=== PATIENT | female | born 1950 | race Caucasian/White ===

== ENCOUNTER 2017-05-19 12:23 | Emergency (ER) | payer OTHER, MEDICARE ==
[2017-05-19 12:39] VITALS: BP 172/100; BMI 24.7
--- NOTE | 2017-05-19 12:57 | DR.GENAD ---
HPI - PCP Primary Care Physician: siddhartha - Complaint/Symptoms Chief Complaint Doctors Comments: States patient was talking to her sister on the phone and she could not remember who she was talking to and got confused and could not remember talking to her sister. Patient denies headache, dizziness, chest pain or SOB. She is unable to remember her doctor but states she is allergic to IVP dye and her birthday is 46. family states she is a patient of Dr. Medrano. But she cannot remeber what she had for breakfast or supper last night. 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 States she went for her followup appointments and has not had any problems. She denies problems with her balance, dizziness, nausea, vomiting or headaches or blurred vision. Chief Complaint:: short term memory loss began this morning. - Nurses notes reviewed Nurses Notes Review: Yes - Source History Provided: Patient, Family Member - Mode of Arrival Mode of Arrival: Ambulatory - Timing Onset of Chief Complaint: 05/19/17 Came on: Suddenly - Duration Duration: Constant How lon Duration: Hours - Location Location: problems with memory - Severity Severity: Mild - Modifying Factors Worsens:: nothing Improves:: nothing PMH - PMH Past Medical History: No Past Surgical History: Yes - Family History History of Family Medical Conditions: Yes Family Medical History: Diabetes Mellitus - Social History Does patient currently use any type of tobacco product: Yes Have you used tobacco products in the last 12 months: Yes Type of Tobacco Use: Cigarettes Alcohol Use: None Do you use any recreational Drugs:: No Lives With: Alone Lives Where: Home - infectious screening In the last 2 months have you had wt loss of >10#?: NO Have you had fever, night sweats or hemotysis?: No Have you traveled outside the country in the last 6 months?: No Isolation: Standard ROS - Review of Systems Constitutional: No Symptoms Reported. negative: See HPI, Chills, Diaphoresis, Fever, Malaise, Weakness, Irritable, Fatigue, Loss of Appetite, Other Eyes: No Symptoms Reported ENTM: No Symptoms Reported Respiratoy: No Symptoms Reported. negative: See HPI, Productive Cough, Non- Productive Cough, Moist Cough, Dry Cough, Hacking Cough, Barking Cough, Brassy Cough, Orthopnea, Short of Breath, Stridor, Wheezing, Hemoptysis, Other Cardiovascular: No Symptoms Reported. negative: See HPI, Chest Pain, Edema, Palpitations, Syncope, Cyanosis, Skin Mottling, Other Gastrointestinal/Abdominal: No Symptoms Reported. negative: See HPI, Abdominal Pain, Constipation, Diarrhea, Nausea, Vomiting, Food Intolerance, Other Genitourinary: No Symptoms Reported Neurological: No Symptoms Reported. negative: See HPI (problems with recent and distant memory), Anxiety, Depressed, Emotional Problems, Headache, Numbness , Paresthesia, Pre-existing Deficit, Seizure, Tingling, Tremors, Weakness, Dizziness, Problems Walking, Speech Problem, Other Musculoskeletal: No Symptoms Reported Integumentary: No Symptoms Reported Hematologic/Lymphatic: No Symptoms Reported Endocrine: No Symptoms Reported Psychiatric: No Symptoms Reported. negative: See HPI, Anxiety, Depression, Hallucinations, Excessive crying, Suicidal, Other PE - Vital Signs Vitals: Temperature 98.3 F Pulse Rate 81 Respiratory Rate 18 Blood Pressure 172/100 O2 Sat by Pulse Oximetry 98 - General Limitations: Altered Mental Status (problems with recent memory) General Appearance: Alert, In No Apparent Distress - Head Head Exam: Normal Inspection, Atraumatic, Normocephalic - Eyes Eye exam: Normal Appearance, PERRL, EOMI, Scleral Icterus - ENT ENT Exam: Normal Exam, Normal Oropharynx, Normal External Ear Exam, Mucous Membranes Moist, TM's Normal Bilaterally External Ear Exam: Normal External Inspection TM/Canal Exam: Bilateral Normal Nose Exam: Normal Nose Exam Mouth Exam: Normal Inspection Throat Exam: Normal Inspection - Neck Neck Exam: Normal Inspection, Full ROM, Trachea Midline - Chest Chest Inspection: Normal Inspection, Symmetric Chest Wall Rise - Respiratory Respiratory Exam: Normal Lung Sounds Bilat Respiratory Exam: Bilateral Clear to Auscultation - Cardiovascular Cardiovascular Exam: Regular Rate, Normal Rhythm, Normal Heart Sounds - Abdominal Exam Abdominal Exam: Normal Inspection, Normal Bowel Sounds, Soft Abdominal Tenderness: negative: RUQ, RLQ, LUQ, LLQ, Epigastrium, Suprapubic, Diffuse, Mild, Moderate, Severe, Other - Extremities Extremities Exam: Normal Inspection, Full ROM, Normal Capillary Refill. negative: Tenderness, Edema, Joint Swelling, Calf Tenderness, Other - Back Back Exam: Normal Inspection, Full ROM - Neurologic Neurological Exam: Alert, Oriented X3, CN II-XII Intact (problems with recent memory), Reflexes Normal. negative: Normal Gait (gait not tested), Motor Sensory Deficit - Psychiatric Psychiatric Exam: Normal Affect, Normal Mood - Skin Skin Exam: Warm, Dry, Intact, Normal Color ROR - Labs Reviewed Laboratory Results Reviewed?: Yes (all labs and x-ray results reviewed and discussed with patient) Result Diagrams: 05/19/17 13:02 05/19/17 13:02 Laboratory: WBC 10.0 X10^3/uL (3.6-10.0) 05/19/17 13:02 RBC 4.47 X10^6/uL (3.5-5.4) 05/19/17 13:02 Hgb 14.0 g/dL (12.0-16.0) 05/19/17 13:02 Hct 41.0 % (36.0-47.0) 05/19/17 13:02 MCV 91.8 fL (80.0-100.0) 05/19/17 13:02 MCH 31.4 pg (27.0-34.0) 05/19/17 13:02 MCHC 34.2 g/dL (33.0-35.0) 05/19/17 13:02 RDW 12.9 % (11.6-16.5) 05/19/17 13:02 Plt Count 175 X10^3/uL (150.0-450.0) 05/19/17 13:02 MPV 8.2 fL (7.4-11.0) 05/19/17 13:02 Neut % 73.0 % (42.0-75.0) 05/19/17 13:02 Lymph % 21.9 % (21.0-51.0) 05/19/17 13:02 [place] % 3.8 % (0.0-13.0) 05/19/17 13:02 Eos % 0.5 % (0.9-2.9) L 05/19/17 13:02 Baso % 0.8 % (0.2-1.0) 05/19/17 13:02 Neut # 7.3 x10^3/uL (2.2-4.8) H 05/19/17 13:02 Lymph # 2.2 X10^3/uL (1.3-2.9) 05/19/17 13:02 [place] # 0.4 x10^3/uL (0.3-0.8) 05/19/17 13:02 Eos # 0.1 x10^3/uL (0.0-0.2) 05/19/17 13:02 Baso # 0.1 X10^3/uL (0.0-0.1) 05/19/17 13:02 Absolute Nucleated RBC 0.0 /100WBC 05/19/17 13:02 INR Target Range - 05/19/17 13:02 INR 1.00 (0.8-1.3) 05/19/17 13:02 PTT 29.5 SECONDS (22.9-36.5) 05/19/17 13:02 PTT Comment - 05/19/17 13:02 Sodium 143 mmol/L (136-145) 05/19/17 13:02 Corrected Sodium TNP 05/19/17 13:02 Potassium 4.6 mmol/L (3.5-5.1) 05/19/17 13:02 Chloride 105 mmol/L (98-107) 05/19/17 13:02 Carbon Dioxide 27.3 mmol/L (21-32) 05/19/17 13:02 BUN 11 mg/dL (7-18) 05/19/17 13:02 Creatinine 0.89 mg/dL (0.55-1.02) 05/19/17 13:02 Est GFR (MDRD) Af Amer > 60 (>60) 05/19/17 13:02 Est GFR (MDRD) Non-Af > 60 (>60) 05/19/17 13:02 Glucose 99 mg/dL (65-99) 05/19/17 13:02 Calcium 9.9 mg/dL (8.5-10.1) 05/19/17 13:02 Corrected Calcium TNP 05/19/17 13:02 Magnesium 1.8 mg/dL (1.7-2.9) 05/19/17 13:02 Total Bilirubin 0.50 mg/dL (0.2-1.0) 05/19/17 13:02 AST 15 Units/L (15-37) 05/19/17 13:02 ALT 18 Units/L (12-78) 05/19/17 13:02 Alkaline Phosphatase 79 Units/L (46-116) 05/19/17 13:02 Creatine Kinase 44 Units/L (26-192) 05/19/17 13:02 CK-MB (CK-2) < 1.0 ng/mL (0-4.0) 05/19/17 13:02 CK/CKMB % Calc 2.3 % (<4) 05/19/17 13:02 Troponin I < 0.02 ng/mL (0-1.5) 05/19/17 13:02 Total Protein 7.8 g/dL (6.4-8.2) 05/19/17 13:02 Albumin 4.4 g/dL (3.4-5.0) 05/19/17 13:02 Globulin 3.4 g/dL (2.5-4.5) 05/19/17 13:02 Albumin/Globulin Ratio 1.3 Ratio (1.1-2.1) 05/19/17 13:02 - XRAY XRAY Interpreted by: Radiologist (CT No definite evidence of an acute intracranial process Moderate microvascular white matter ischemic changes) - EKG Rate: 85 [place]: Normal Rhythm: NSR Block: None Hypertrophy: LAE ST: Nonsp - Diagnosis Discharge Problem: altered mental status r/o CVA, Chronic kidney disease (CKD) Hypertension Qualifiers: Hypertension type: essential hypertension Qualified Code(s): I10 - Essential ( primary) hypertension - Discharge Plan Disposition: 07 AGAINST MEDICAL ADVICE Condition: Stable - Follow ups/Referrals Follow ups/Referrals: Crsitian Medrano [Primary Care Provider] - 3 days - Instructions Instructions: Stroke Prevention
[2017-05-19 13:14] LABS: BASOPHILS # (AUTO) 0.1 X10^3/uL (0.0-0.1); BASOPHILS % (AUTO) 0.8 % (0.2-1.0); EOSINOPHILS # (AUTO) 0.1 x10^3/uL (0.0-0.2); EOSINOPHILS % (AUTO) 0.5 % (0.9-2.9); LYMPHOCYTES # (AUTO) 2.2 X10^3/uL (1.3-2.9); LYMPHOCYTES % (AUTO) 21.9 % (21.0-51.0); MEAN CORPUSCULAR HEMOGLOBIN 31.4 pg (27.0-34.0); MEAN CORPUSCULAR HGB CONC 34.2 g/dL (33.0-35.0); MEAN CORPUSCULAR VOLUME 91.8 fL (80.0-100.0); MEAN PLATELET VOLUME 8.2 fL (7.4-11.0); MONOCYTES # (AUTO) 0.4 x10^3/uL (0.3-0.8); MONOCYTES % (AUTO) 3.8 % (0.0-13.0); NEUTROPHILS # (AUTO) 7.3 x10^3/uL (2.2-4.8); PLATELET COUNT 175 X10^3/uL (150.0-450.0); RED BLOOD COUNT 4.47 X10^6/uL (3.5-5.4); RED CELL DISTRIBUTION WIDTH 12.9 % (11.6-16.5)
--- NOTE | 2017-05-19 13:23 | RAD ---
Examination: Portable AP chest History: Memory loss Comparison reference 12/15/2013 Findings: Continued normal heart size with clear lungs and pleural spaces. Surgical clips again noted in the neck. Impression: No change; no acute disease. Reported By:
[2017-05-19 13:26] LABS: BLOOD UREA NITROGEN 11 mg/dL (7-18); CALCIUM 9.9 mg/dL (8.5-10.1); CARBON DIOXIDE 27.3 mmol/L (21-32); CHLORIDE 105 mmol/L (98-107); CREATININE 0.89 mg/dL (0.55-1.02); SODIUM 143 mmol/L (136-145); TROPONIN I < 0.02 ng/mL (0-1.5); eGFR BLACK RACES > 60 (>60); eGFR NON BLACK RACES > 60 (>60)
--- NOTE | 2017-05-19 13:27 | CT ---
CT HEAD WITHOUT CONTRAST CLINICAL HISTORY: 67-year-old female with short-term memory loss. COMPARISON: None. TECHNIQUE: Multiple, non-contrasted axial CT images were obtained from the skull base to the cranial vertex. Coronal and sagittal reformats were performed. 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 There are no abnormal intra- or extra-axial fluid collections, midline shift, or mass effect. Dewitt-wh ite differentiation is normal. Partially empty sella. Global cortical involutional changes are presen t that are within normal limits for the patient's stated age. The ventricular system is mildly enlarg ed but commensurate with the degree of sulcal prominence. Periventricular and supraventricular white matter hypodensity is present that is nonspecific in appearance, but most likely to represent microva scular ischemic changes. Atherosclerotic vascular calcification is present within the carotid siphons and distal vertebral arteries. The imaged paranasal sinuses, mastoid air cells, and tympanic spaces are clear. IMPRESSION: 1. No definite evidence of an acute intracranial process. If clinical concern persists for acute stro ke, consider MRI/MRA brain. 2. Moderate microvascular white matter ischemic changes, with associated volume loss. Reported By:
[2017-05-19 13:31] LABS: ALANINE AMINOTRANSFERASE 18 Units/L (12-78); ALBUMIN 4.4 g/dL (3.4-5.0); ALKALINE PHOSPHATASE 79 Units/L (46-116); ASPARTATE AMINO TRANSFERASE 15 Units/L (15-37); CKMB % 2.3 % (<4); CREATINE KINASE 44 Units/L (26-192); CREATINE KINASE MB < 1.0 ng/mL (0-4.0); MAGNESIUM 1.8 mg/dL (1.7-2.9); TOTAL PROTEIN 7.8 g/dL (6.4-8.2)
== END 2017-05-19 15:31 | disposition left against medical advice (07) ==
LOC: ER 12:23
DX: N18.9 Chronic kidney disease, unspecified (principal); R41.82 Altered mental status, unspecified; I10 Essential (primary) hypertension
CPT/HCPCS: 36415; 70450; 71045; 80053; 82550; 82553; 83735; 84484; 85025; 85610; 85730; 93005; 93010; 99283; A4222

== ENCOUNTER 2024-12-03 14:54 | Observation (INO) ==
[2024-12-03 16:41] LABS: MEAN PLATELET VOLUME 7.9 fL (7.4-11.0); RED CELL DISTRIBUTION WIDTH 15.5 % (11.6-16.5)
[2024-12-03 16:50] LABS: COR NA(FOR HYPERGLY) 144 mmol/L (136-145); CREATININE 1.02 mg/dL (0.55-1.02); eGFR NON BLACK RACES 56 (>60)
[2024-12-03 17:34] VITALS: BMI 22.4
[2024-12-03 18:44] LABS: BLOOD/HEMOGLOBIN,URINE 3+ (NEGATIVE); LEUKOCYTE ESTERASE ,URINE 1+ (NEGATIVE); NITRITES,URINE NEGATIVE (NEGATIVE)
[2024-12-03 18:52] LABS: APPEARANCE,URINE CLOUDY (CLEAR); SQUAMOUS EPITHELIAL CELL,UR RARE /HPF (NEGATIVE)
[2024-12-03] MEDS: PERCOCET TAB 5/325 MG PO PRN (18:54)
[2024-12-03] MEDS: MAG-OX TAB PO SCH (20:12)
[2024-12-03] MEDS: TOPROL XL PO SCH (20:12)
[2024-12-03] MEDS: CRESTOR TAB 10 MG PO SCH (20:12)
[2024-12-03] MEDS: COLACE CAP 100 MG PO SCH (20:12)
[2024-12-03] MEDS: MILK OF MAGNESIA PO SCH (20:12)
[2024-12-03] MEDS: OXYBUTYNIN CHLORIDE ER PO SCH (20:13)
[2024-12-03] MEDS: CELEXA PO SCH (20:13)
[2024-12-03] MEDS: KLOR-CON PO SCH (20:15)
[2024-12-04 05:52] LABS: MEAN PLATELET VOLUME 8.0 fL (7.4-11.0); RED CELL DISTRIBUTION WIDTH 15.5 % (11.6-16.5)
[2024-12-04 06:08] LABS: CREATININE 0.93 mg/dL (0.55-1.02); eGFR NON BLACK RACES > 60 (>60)
--- NOTE | 2024-12-04 07:52 | RAD ---
EXAM: SHOULDER, LEFT HISTORY: f/u fracture; COMPARISON: 11/19/2024 TECHNIQUE: 2 views FINDINGS: Impacted left humerus surgical neck fracture with similar alignment to comparison. Mild decrease in fracture line distinctness. No significant callus formation. Moderate glenohumeral osteoarthritis. Normal acromioclavicular alignment. IMPRESSION: Unchanged impacted left humerus surgical neck fracture alignment. THIS IS AN ELECTRONICALLY VERIFIED FINAL REPORT 12/04/2024 7:49 AM - Electronically signed by Antonino Mari MD
[2024-12-04] MEDS: CONSULT PHARMACY - POTASSIUM & MAGNESIUM XX SCH (08:23)
[2024-12-04] MEDS: ASPIRIN EC 81 MG PO SCH (09:01)
[2024-12-04] MEDS: PLAVIX PO SCH (09:01)
--- NOTE | 2024-12-04 09:30 | DR.H&P ---
H&P History & Physical for Day of: H&P Date: 12/04/24 Chief Complaint Chief Complaint: left humeral neck fracture History of Present Illness History of Present Illness: Patient is a 74-year-old female with a past medical history of Carotid arterial disease and hyperlipidemia presenting as a direct admit after having a left humeral neck fracture. She has been evaluated by orthopedicDrAshli James and she is with him have agreed on nonsurgical treatment. She has been admitted for pain control. On labs she also has an acute cystitis. Labs/imaging: WBC 5.7, hemoglobin 9.2, platelets 198, sodium 144, potassium 4.2, creatinine 0.93, glucose 101, UA consistent with infection, urine culture pending. Patient was admitted for the left humeral neck fracture and acute cystitis. Will start her on antibiotics cefdinir while awaiting cultures. Will order physical therapy. Case management will work on disposition. Restart home medications. Otherwise continue with current treatment plan. Continue continue to closely monitor and follow-up labs/imaging. Past Medical History Past Medical History: Coronary Artery Disease and Dyslipidemia Past Surgical History Surgical History: Carotid Endarterectomy and Other Family History Family Medical History: Diabetes Mellitus, Cancer, [place], Coronary Artery Disease and Hypertension Social History Does patient currently use any type of tobacco product: No Type of Tobacco Use: None Alcohol Use: None Drug Use: None Medications Home Medications: Home Medications Medication Instructions Recorded Confirmed Type citalopram 40 mg tablet 40 mg PO HS 10/20/24 5 History clopidogrel 75 mg tablet 75 mg PO QDAY 10/20/2412/03 History oxybutynin chloride 5 mg 5 mg PO HS 10/20/24 12/03/24 History tablet,extended release 24 hr aspirin 81 mg tablet 81 mg PO QDAY 11/18/2412/03 History metoprolol succinate 25 mg 12.5 mg PO HS 12/03/2411/12 History tablet,extended release 24 hr oxycodone-acetaminophen 5 mg-325 1 tab PO Q8H PRN 11/1212/03/24 History mg tablet rosuvastatin 20 mg tablet 20 mg PO HS 12/03/24 5 History Allergies Allergies Allergy/AdvReac Type Severity Reaction Status Date / Time Iodinated Contrast Media Allergy Verified 11/18/24 11:36 Labs 12/04/24 05:20 12/04/24 05:20 Labs: Laboratory WBC 5.7 X10^3/uL (3.6-10.0) 12/04/24 05:20 RBC 2.94 X10^6/uL (3.5-5.4) L 12/04/24 05:20 Hgb 9.2 g/dL (12.0-16.0) L 12/04/24 05:20 Hct 27.3 % (36.0-47.0) L 12/04/24 05:20 MCV 92.8 fL (80.0-100.0) 12/04/24 05:20 MCH 31.4 pg (27.0-34.0) 12/04/24 05:20 MCHC 33.8 g/dL (33.0-35.0) 12/04/24 05:20 RDW 15.5 % (11.6-16.5) 12/04/24 05:20 Plt Count 198 X10^3/uL (150.0-450.0) 12/04/24 05:20 MPV 8.0 fL (7.4-11.0) 12/04/24 05:20 Neut % (Auto) 54.1 % (42.0-75.0) 12/04/24 05:20 Lymph % (Auto) 36.5 % (21.0-51.0) 12/04/24 05:20 [place] % (Auto) 7.2 % (0.0-13.0) 12/04/24 05:20 Eos % (Auto) 1.6 % (0.9-2.9) 12/04/24 05:20 Baso % (Auto) 0.6 % (0.2-1.0) 12/04/24 05:20 Neut # (Auto) 3.1 x10^3/uL (2.2-4.8) 12/04/24 05:20 Lymph # (Auto) 2.1 X10^3/uL (1.3-2.9) 12/04/24 05:20 [place] # (Auto) 0.4 x10^3/uL (0.3-0.8) 12/04/24 05:20 Eos # (Auto) 0.1 x10^3/uL (0.0-0.2) 12/04/24 05:20 Baso # (Auto) 0.0 X10^3/uL (0.0-0.1) 12/04/24 05:20 Absolute Nucleated RBC 0.1 /100WBC 12/04/24 05:20 Sodium 144 mmol/L (136-145) 12/04/24 05:20 Corrected Sodium TNP 12/04/24 05:20 Potassium 4.2 mmol/L (3.5-5.1) 12/04/24 05:20 Chloride 106 mmol/L (98-107) 12/04/24 05:20 Carbon Dioxide 32.2 mmol/L (21-32) H 12/04/24 05:20 BUN 13 mg/dL (7-18) 12/04/24 05:20 Creatinine 0.93 mg/dL (0.55-1.02) 12/04/24 05:20 Est GFR (MDRD) Af Amer > 60 (>60) 12/04/24 05:20 Est GFR (MDRD) Non-Af > 60 (>60) 12/04/24 05:20 Glucose 101 mg/dL (65-99) H 12/04/24 05:20 Calcium 8.8 mg/dL (8.5-10.1) 12/04/24 05:20 Corrected Calcium TNP 12/04/24 05:20 Magnesium 2.5 mg/dL (2.0-2.9) 12/04/24 05:20 Total Bilirubin 0.50 mg/dL (0.2-1.0) 12/04/24 05:20 AST 15 Units/L (15-37) 12/04/24 05:20 ALT 17 Units/L (12-78) 12/04/24 05:20 Alkaline Phosphatase 106 Units/L (46-116) 12/04/24 05:20 Total Protein 6.7 g/dL (6.4-8.2) 12/04/24 05:20 Albumin 3.5 g/dL (3.4-5.0) 12/04/24 05:20 Globulin 3.2 g/dL (2.5-4.5) 12/04/24 05:20 Albumin/Globulin Ratio 1.1 Ratio (1.1-2.1) 12/04/24 05:20 Specimen Type Clean catch urine 12/03/24 18:26 Urine Color Yellow (YELLOW) 12/03/24 18:26 Urine Appearance Cloudy (CLEAR) 12/03/24 18:26 Urine pH 6.5 (5.0 - 8.0) 12/03/24 18:26 Ur Specific [place] 1.020 (1.000-1.030) 12/03/24 18:26 Urine Protein 2+ (NEGATIVE) 12/03/24 18:26 Urine Glucose (UA) Negative (NEGATIVE) 12/03/24 18:26 Urine Ketones Negative (NEGATIVE) 12/03/24 18:26 Urine Blood 3+ (NEGATIVE) 12/03/24 18:26 Urine Nitrite Negative (NEGATIVE) 12/03/24 18:26 Urine Bilirubin Negative (NEGATIVE) 12/03/24 18:26 Urine Urobilinogen 3+ (NORMAL) 12/03/24 18:26 Ur Leukocyte Esterase 1+ (NEGATIVE) 12/03/24 18:26 Urine RBC None seen /HPF (0-3) 12/03/24 18:26 Urine WBC 5-10 /HPF (0-5) A 12/03/24 18:26 Ur Squamous Epith Cells Rare /HPF (NEGATIVE) 12/03/24 18:26 Urine Bacteria 4+ /HPF (NEGATIVE) 12/03/24 18:26 Ur Culture Indicated? Yes/culture set up 12/03/24 18:26 Review of Systems Constitutional: Weakness Eyes: No Symptoms Reported ENT: No Symptoms Reported Respiratory: No Symptoms Reported Cardiovascular: No Symptoms Reported Gastrointestinal: No Symptoms Reported Genitourinary: No Symptoms Reported Musculoskeletal: Arm Pain (left arm in sling) Skin: No Symptoms Reported Neurological: No Symptoms Reported Physical Exam Vital Signs: Vital Signs Temperature 97.6 F Pulse Rate [Left Radial] 57 Respiratory Rate 18 Respiratory Rate 18 Respiratory Rate 18 Blood Pressure [Right Arm] 127/58 O2 Sat by Pulse Oximetry 95 Oriented: Normal Eyes: Normal Ear: Normal Nose: Normal Throat: Normal Respiratory: Clear Throughout Cardiovascular: Normal : Normal Auscultation: Bowel Sounds: Normal Palpation: Normal Tenderness: Normal Skin: Normal Musculoskeletal: Arm (left arm in sling) Psychiatric: Normal Mood Description: Calm and Appropriate Affect: Normal Speech Pattern: Clear and Appropriate Assessment/Plan (1) Closed left humeral fracture: Qualifiers: Encounter type: initial encounter Fracture alignment: nondisplaced F racture morphology: other fracture Humerus Location: proximal Qualified Code(s): S42.295A - Other nondisplaced fracture of upper end of left humerus, initial encounter for closed fracture Status: Acute Plan: supportive treatment PT (2) Acute cystitis: Qualifiers: Hematuria presence: with hematuria Qualified Code(s): N30.01 - Acute cystitis with hematuria Status: Acute Plan: Cefdinir follow culture results Review H&P Reviewed: Yes Patient was examined?: Yes
[2024-12-04] MEDS: LOVENOX INJ 40 MG SYR SC SCH (10:23)
[2024-12-04] MEDS: OMNICEF CAP 300 MG PO SCH (10:23)
[2024-12-04] MEDS: PHARMACY CONSULT XX SCH (12:47)
[2024-12-05 06:12] LABS: MEAN PLATELET VOLUME 8.2 fL (7.4-11.0); RED CELL DISTRIBUTION WIDTH 15.6 % (11.6-16.5)
[2024-12-05 06:22] LABS: CREATININE 0.87 mg/dL (0.55-1.02); eGFR NON BLACK RACES > 60 (>60)
--- NOTE | 2024-12-05 09:38 | PCM.PROG ---
Progress Note Progress Note for Day of Date of Exam: 12/05/24 Subjective Subjective: Patient is a 74-year-old female with a past medical history of Carotid arterial disease and hyperlipidemia admit with left humeral neck fracture and acute cystitis. She has been evaluated by orthopedicDrAshli James and they have agreed on nonsurgical treatment. This morning she is resting in bed. No acute events overnight. She is working with physical therapy. Labs/imaging: WBC 7, hemoglobin 9.9, platelets 199, sodium 141, potassium 4.2, creatinine 0.87, glucose 101, UA consistent with infection, urine culture gram positive cocci. Will continue antibiotics cefdinir while awaiting final cultures. Continue physical therapy. Case management will work on disposition. Home medications have been resumed. Otherwise continue with current treatment plan. Continue to closely monitor and follow-up labs/imaging. Past Medical Family Social History Allergies: Allergies Iodinated Contrast Media Allergy (Verified 11/18/24 11:36) Review of Systems ROS changes noted: see HPI Vital Signs and I&O's Vital Signs: Vital Signs Temperature 98.2 F Pulse Rate [Left Radial] 57 Respiratory Rate 17 Respiratory Rate 17 Blood Pressure [Right Arm] 138/62 O2 Sat by Pulse Oximetry 93 O2 Sat by Pulse Oximetry 94 Intake and Output: Intake & Output 12/02/24 12/03/24 12/04/24 12/05/24 23:59 23:59 23:59 23:59 Intake Total 110 / 110 960 / 960 Balance 110 / 110 960 / 960 Physical Exam Oriented: Normal Eyes: Normal Ear: Normal Nose: Normal Throat: Normal Respiratory: Normal Cardiovascular: Normal : Normal Auscultation: Bowel Sounds: Normal Tenderness: Normal Skin: Normal Musculoskeletal: Arm (left arm in sling) Psychiatric: Normal Mood Description: Calm and Appropriate Affect: Normal Speech Pattern: Clear and Appropriate Laboratory and Diagnostics 12/05/24 05:12 12/05/24 05:12 Labs: 12/03/24 18:26 Urine,Clean Catch Urine Culture - Preliminary Laboratory WBC 7.0 X10^3/uL (3.6-10.0) 12/05/24 05:12 RBC 3.17 X10^6/uL (3.5-5.4) L 12/05/24 05:12 Hgb 9.9 g/dL (12.0-16.0) L 12/05/24 05:12 Hct 29.4 % (36.0-47.0) L 12/05/24 05:12 MCV 92.9 fL (80.0-100.0) 12/05/24 05:12 MCH 31.4 pg (27.0-34.0) 12/05/24 05:12 MCHC 33.8 g/dL (33.0-35.0) 12/05/24 05:12 RDW 15.6 % (11.6-16.5) 12/05/24 05:12 Plt Count 199 X10^3/uL (150.0-450.0) 12/05/24 05:12 MPV 8.2 fL (7.4-11.0) 12/05/24 05:12 Neut % (Auto) 67.1 % (42.0-75.0) 12/05/24 05:12 Lymph % (Auto) 23.5 % (21.0-51.0) 12/05/24 05:12 [place] % (Auto) 6.6 % (0.0-13.0) 12/05/24 05:12 Eos % (Auto) 1.8 % (0.9-2.9) 12/05/24 05:12 Baso % (Auto) 1.0 % (0.2-1.0) 12/05/24 05:12 Neut # (Auto) 4.7 x10^3/uL (2.2-4.8) 12/05/24 05:12 Lymph # (Auto) 1.6 X10^3/uL (1.3-2.9) 12/05/24 05:12 [place] # (Auto) 0.5 x10^3/uL (0.3-0.8) 12/05/24 05:12 Eos # (Auto) 0.1 x10^3/uL (0.0-0.2) 12/05/24 05:12 Baso # (Auto) 0.1 X10^3/uL (0.0-0.1) 12/05/24 05:12 Absolute Nucleated RBC 0.1 /100WBC 12/05/24 05:12 Sodium 141 mmol/L (136-145) 12/05/24 05:12 Corrected Sodium TNP 12/05/24 05:12 Potassium 4.2 mmol/L (3.5-5.1) 12/05/24 05:12 Chloride 106 mmol/L (98-107) 12/05/24 05:12 Carbon Dioxide 32.1 mmol/L (21-32) H 12/05/24 05:12 BUN 12 mg/dL (7-18) 12/05/24 05:12 Creatinine 0.87 mg/dL (0.55-1.02) 12/05/24 05:12 Est GFR (MDRD) Af Amer > 60 (>60) 12/05/24 05:12 Est GFR (MDRD) Non-Af > 60 (>60) 12/05/24 05:12 Glucose 101 mg/dL (65-99) H 12/05/24 05:12 Calcium 9.1 mg/dL (8.5-10.1) 12/05/24 05:12 Corrected Calcium TNP 12/05/24 05:12 Magnesium 2.5 mg/dL (2.0-2.9) 12/04/24 05:20 Total Bilirubin 0.50 mg/dL (0.2-1.0) 12/05/24 05:12 AST 12 Units/L (15-37) L 12/05/24 05:12 ALT 14 Units/L (12-78) 12/05/24 05:12 Alkaline Phosphatase 110 Units/L (46-116) 12/05/24 05:12 Total Protein 7.1 g/dL (6.4-8.2) 12/05/24 05:12 Albumin 3.7 g/dL (3.4-5.0) 12/05/24 05:12 Globulin 3.4 g/dL (2.5-4.5) 12/05/24 05:12 Albumin/Globulin Ratio 1.1 Ratio (1.1-2.1) 12/05/24 05:12 Specimen Type Clean catch urine 12/03/24 18:26 Urine Color Yellow (YELLOW) 12/03/24 18:26 Urine Appearance Cloudy (CLEAR) 12/03/24 18:26 Urine pH 6.5 (5.0 - 8.0) 12/03/24 18:26 Ur Specific [place] 1.020 (1.000-1.030) 12/03/24 18:26 Urine Protein 2+ (NEGATIVE) 12/03/24 18:26 Urine Glucose (UA) Negative (NEGATIVE) 12/03/24 18:26 Urine Ketones Negative (NEGATIVE) 12/03/24 18:26 Urine Blood 3+ (NEGATIVE) 12/03/24 18:26 Urine Nitrite Negative (NEGATIVE) 12/03/24 18:26 Urine Bilirubin Negative (NEGATIVE) 12/03/24 18:26 Urine Urobilinogen 3+ (NORMAL) 12/03/24 18:26 Ur Leukocyte Esterase 1+ (NEGATIVE) 12/03/24 18:26 Urine RBC None seen /HPF (0-3) 12/03/24 18:26 Urine WBC 5-10 /HPF (0-5) A 12/03/24 18:26 Ur Squamous Epith Cells Rare /HPF (NEGATIVE) 12/03/24 18:26 Urine Bacteria 4+ /HPF (NEGATIVE) 12/03/24 18:26 Ur Culture Indicated? Yes/culture set up 12/03/24 18:26 Plan (1) Closed left humeral fracture: Status: Acute Qualifiers: Encounter type: initial encounter Fracture alignment: nondisplaced F racture morphology: other fracture Humerus Location: proximal Qualified Code(s): S42.295A - Other nondisplaced fracture of upper end of left humerus, initial encounter for closed fracture Plan: supportive treatment PT (2) Acute cystitis: Status: Acute Qualifiers: Hematuria presence: with hematuria Qualified Code(s): N30.01 - Acute cystitis with hematuria Plan: Cefdinir follow culture results
[2024-12-05] MEDS: PERCOCET TAB 5/325 MG PO PRN (14:26)
[2024-12-06 07:02] LABS: MEAN PLATELET VOLUME 8.3 fL (7.4-11.0); RED CELL DISTRIBUTION WIDTH 15.9 % (11.6-16.5)
[2024-12-06 07:16] LABS: CREATININE 0.96 mg/dL (0.55-1.02); eGFR NON BLACK RACES > 60 (>60)
[2024-12-06] MEDS: MILK OF MAGNESIA PO PRN (20:47)
[2024-12-07 06:58] LABS: MEAN PLATELET VOLUME 8.4 fL (7.4-11.0); RED CELL DISTRIBUTION WIDTH 15.8 % (11.6-16.5)
[2024-12-07 07:07] LABS: CREATININE 0.84 mg/dL (0.55-1.02); eGFR NON BLACK RACES > 60 (>60)
[2024-12-07] MEDS: MOBIC TAB 15 MG PO SCH (09:24)
[2024-12-07] MEDS: TORADOL 15 MG VIAL IVP ONE (09:25)
[2024-12-08 05:56] LABS: MEAN PLATELET VOLUME 8.5 fL (7.4-11.0); RED CELL DISTRIBUTION WIDTH 15.4 % (11.6-16.5)
[2024-12-08 06:11] LABS: CREATININE 0.81 mg/dL (0.55-1.02); eGFR NON BLACK RACES > 60 (>60)
[2024-12-08 11:55] VITALS: BP 102/51; PULSE 58; RESP 22; TEMP 98; O2SAT 96
== END 2024-12-08 13:10 | disposition home health service (06) ==
LOC: MED/SURG
PROVIDERS: ADMIT Internal Medicine; ATTEND Internal Medicine
DX: E83.42 Hypomagnesemia; M79.602 Pain in left arm; R26.89 Other abnormalities of gait and mobility; I25.10 Atherosclerotic heart disease of native coronary artery without angina pectoris; Z59.86 Financial insecurity; E78.5 Hyperlipidemia, unspecified; R05.8 Other specified cough; N30.00 Acute cystitis without hematuria; S42.295D Other nondisplaced fracture of upper end of left humerus, subsequent encounter for fracture with routine healing; X58.XXXD Exposure to other specified factors, subsequent encounter